=== PATIENT | female | born 2000 | race Hispanic/Latino ===

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

== ENCOUNTER → 2022-02-03 | Outpatient (REF) | payer OTHER, BC, MEDICAID ==
[~2022-02-03] MED LIST changes: +BACT800T5 PO; +CEFP100T PO; +ETON68IM SC; -NEXP1IMP SC; +PYRI1TAB5 PO; +TRAM50TA2 PO
== END ==
LOC: M LAB REF 17:05
PROVIDERS: ATTEND Physician Assistant
DX: R82.998 Other abnormal findings in urine (principal)

== ENCOUNTER → 2022-02-11 | Outpatient (REF) | payer OTHER, MEDICAID ==
[2022-02-11 19:40] LABS: GC DNA AMPLIFICATION NEGATIVE (NEGATIVE)
== END ==
LOC: M LAB REF 17:17
PROVIDERS: ATTEND Pediatrics
DX: B37.31 Acute candidiasis of vulva and vagina (principal)

== ENCOUNTER → 2022-02-12 | Outpatient (CLI) | payer OTHER, MEDICAID | LOC: M SOG 07:56 | PROVIDERS: ATTEND Orthopaedic Surgery | DX: M54.50 Low back pain, unspecified (principal) ==

== ENCOUNTER → 2022-09-21 | Outpatient (REF) | payer BC, OTHER, MEDICAID | LOC: M LAB REF 15:04 | PROVIDERS: ATTEND Pediatrics | DX: J02.9 Acute pharyngitis, unspecified (principal) ==

== ENCOUNTER → 2022-10-18 | Outpatient (CLI) | payer BC, OTHER, MEDICAID ==
[2022-10-18 14:32] LABS: THYROID STIMULATING HORMONE 0.964 uIU/ML (0.48-4.17); VITAMIN B12 LEVEL 443 PG/ML (211-911)
[2022-10-18 14:33] LABS: TOTAL IRON BINDING CAPACITY 331 UG/DL (250-425)
[2022-10-18 14:34] LABS: ALBUMIN 3.8 G/DL (3.2-5.2); ALKALINE PHOSPHATASE 66 U/L (46-116); ALT/SGPT 30 U/L (7.0-40); AST/SGOT 18 U/L (<34); BASO # 0.1 10^3/uL (0.0-0.2); BASO % 0.6 % (0.0-1.0); BILIRUBIN,TOTAL 0.2 MG/DL (0.3-1.2); BLOOD UREA NITROGEN 13 MG/DL (9-23); CALCIUM LEVEL 9.6 MG/DL (8.5-10.1); CARBON DIOXIDE LEVEL 24 MMOL/L (20-31); CHLORIDE LEVEL 110 MMOL/L (98-107); CREATININE FOR GFR 0.57 MG/DL (0.55-1.30); EOS # 0.5 10^3/uL (0.0-0.5); EOS % 5.1 % (0.0-3.0); FREE T4 0.86 NG/DL (0.83-1.43); GLUCOSE, FASTING 105 MG/DL (60-100); HEMOGLOBIN 14.1 g/dl (12.0-15.5); IRON (FE) 49 UG/DL (50-170); LYMPH # 2.8 10^3/uL (1.5-5.0); LYMPH % 31.7 % (24.0-44.0); MEAN CORPUSCULAR HEMOGLOBIN 30.1 pg (27.0-33.0); MEAN CORPUSCULAR HGB CONC 31.3 g/dl (32.0-36.5); MEAN CORPUSCULAR VOLUME 95.9 fl (80.0-96.0); MONO # 0.5 10^3/uL (0.0-0.8); MONO % 5.5 % (2.0-8.0); NEUTROPHILS % 56.9 % (36.0-66.0); PERCENT SATURATION 14.8 % (13.2-45.0); PLATELET COUNT, AUTOMATED 283 10^3/uL (150-450); POTASSIUM SERUM 4.8 MMOL/L (3.5-5.1); RED BLOOD COUNT 4.69 10^6/uL (4.00-5.40); SODIUM LEVEL 141 MMOL/L (136-145); TOTAL PROTEIN 6.4 G/DL (5.7-8.2); WHITE BLOOD COUNT 8.7 10^3/uL (4.0-10.0)
[2022-10-18 14:35] LABS: FOLATE 11.43 NG/ML (>5.4)
[2022-10-21 20:10] LABS: ANTINUCLEAR ANTIBODIES DIRECT Negative (Negative); DEHYDROEPIANDROSTERONE UNCONJ 396 ng/dL (31-701); TESTOSTERONE FREE (DIRECT) 5.3 pg/mL (0.0-4.2); VITAMIN D 1,25 DIHYDROXY 39.3 pg/mL (24.8-81.5)
== END ==
LOC: M WUC 09:16
DX: L63.8 Other alopecia areata (principal)

== ENCOUNTER 2022-11-30 15:28 | Emergency (ER) | payer BC, OTHER, MEDICAID ==
[~2022-11-30] VITALS: Ht 167.6 cm; Wt 111.7 kg
[2022-11-30 15:29] VITALS: BP 138/72; TEMP 97.7; O2SAT 100
== END 2022-11-30 20:39 | disposition left against medical advice (07) ==
LOC: M ED 15:28
DX: Z53.21 Procedure and treatment not carried out due to patient leaving prior to being seen by health care provider (principal)